=== PATIENT | male | born 1935 | race African-American/Black ===

== ENCOUNTER 2017-02-24 14:34 | Emergency (ER) | payer MEDICARE, OTHER ==
[~2017-02-24] VITALS: Ht 170.2 cm; Wt 61.7 kg
[~2017-02-24 14:34] MED LIST: AML5T PO; APIX2.5T PO; ASPI-231 PO; CAR3125T PO; CARV3.1240 PO; CLON0.1T PO; FURO20TA3 PO; LORA1TAB12 PO; SIMV-13 PO; TAM04C PO
[2017-02-24 15:53] VITALS: BP 153/70
== END 2017-02-24 16:02 | disposition home or self-care (01) ==
LOC: ER 14:34
DX: S93.401A Sprain of unspecified ligament of right ankle, initial encounter (principal); E78.5 Hyperlipidemia, unspecified; I11.0 Hypertensive heart disease with heart failure; I50.9 Heart failure, unspecified; Z79.82 Long term (current) use of aspirin; Z79.899 Other long term (current) drug therapy; Z79.01 Long term (current) use of anticoagulants; X58.XXXA Exposure to other specified factors, initial encounter; Y93.89 Activity, other specified; Y92.89 Other specified places as the place of occurrence of the external cause; Y99.8 Other external cause status
CPT/HCPCS: 73610